=== PATIENT | male | born 1970 | race Caucasian/White ===

== ENCOUNTER → 2020-10-07 02:43 | Outpatient (CLI) | payer OTHER, SELFPAY ==
[2020-10-07 19:41] LABS: SARS-CoV-2 RNA PCR Negative
== END ==
PROVIDERS: PCP Nurse Practitioner Adult Health; Visit Provider Nurse Practitioner Adult Health
DX: R09.81 Nasal congestion (principal); Z20.822 Contact with and (suspected) exposure to COVID-19
CPT/HCPCS: C9803; U0003; U0005

== ENCOUNTER 2021-01-02 08:38 | Outpatient (RCR) | payer OTHER, SELFPAY ==
[2021-01-02] MEDS: FAMOTIDINE 20 MG TABLET PO (14:35)
[2021-01-02] MEDS: ACETAMINOPHEN 325 MG TABLET 650 MG PO (14:35)
[2021-01-02] MEDS: diphenhydrAMINE HCl CAP 25 MG CAPSULE PO (14:35)
[2021-01-02 14:37] VITALS: BP 109/64; PULSE 94; RESP 18; TEMP 35.9; O2SAT 99
[2021-01-02 15:55] VITALS: BP 118/68
--- NOTE | 2021-01-05 12:42 | PC.NURSE ---
Called and spoke to Mr Wilton and he stated he is feeling better and has no questions at this time.
== END 2021-01-02 16:32 ==
LOC: AMCINF 08:38
PROVIDERS: PCP Nurse Practitioner Adult Health; Visit Provider Internal Medicine Hematology & Oncology
DX: Z23 Encounter for immunization (principal); U07.1 COVID-19; I10 Essential (primary) hypertension; E11.9 Type 2 diabetes mellitus without complications
CPT/HCPCS: A9270; M0243; Q0243